=== PATIENT | female | born 1955 | race Native Hawaiian/Other Pacific Islander ===

== ENCOUNTER 2016-06-06 18:14 | Outpatient (CLI) | payer OTHER ==
[~2016-06-06 18:14] MED LIST: ALBUAER5 INH; ALPR1TAB61 PO; BENICAR40 MG PO; FLUTMIS6 INH; FURO20TA67 PO; HYDR-2748 PO; NITR0.4S2 PO; OMEP20CA PO; OMEPRAZOLE20 M1 OR; OMEPRAZOLE20 M1 PO; PRILOSEC20 MG PO; TIZA4TAB5 PO
== END 2016-06-06 18:26 | disposition short-term general hospital (02) ==
LOC: AMB 18:14
DX: R53.1 Weakness (principal); I49.8 Other specified cardiac arrhythmias
CPT/HCPCS: A0425; A0427

== ENCOUNTER 2016-06-06 18:26 | Emergency (ER) | payer OTHER ==
[~2016-06-06] VITALS: Ht 162.6 cm; Wt 68.0 kg
[2016-06-06 21:57] LABS: PLATELET COUNT 311 K/uL (152-353)
[2016-06-06 22:02] LABS: POTASSIUM 3.8 mmol/L (3.6-5.2); SODIUM 136 mmol/L (136-145)
[2016-06-06 23:14] VITALS: BP 175/85; TEMP 98
== END 2016-06-06 23:16 | disposition home or self-care (01) ==
LOC: ED 18:26
DX: N39.0 Urinary tract infection, site not specified (principal)
CPT/HCPCS: 36415; 80053; 80307; 81000; 85027; 93005; 99283; G0479

== ENCOUNTER 2016-07-28 17:50 | Outpatient (CLI) | payer OTHER | END 2016-07-28 18:02 | disposition short-term general hospital (02) | LOC: AMB 17:50 | DX: E86.0 Dehydration (principal); R11.2 Nausea with vomiting, unspecified; R53.1 Weakness | CPT/HCPCS: A0425; A0427 ==

== ENCOUNTER 2016-07-28 18:07 | Emergency (ER) | payer OTHER ==
[~2016-07-28] VITALS: Ht 162.6 cm; Wt 65.8 kg
[2016-07-28 18:44] LABS: PLATELET COUNT 250 K/uL (152-353)
[2016-07-28 18:48] LABS: POTASSIUM 3.6 mmol/L (3.6-5.2); SODIUM 139 mmol/L (136-145)
[2016-07-28 19:36] VITALS: BP 152/95; TEMP 98
== END 2016-07-28 19:38 | disposition home or self-care (01) ==
LOC: ED 18:07
DX: E86.9 Volume depletion, unspecified (principal)
CPT/HCPCS: 80048; 85027; 93005; 96365; 99283

== ENCOUNTER 2016-07-31 09:37 | Outpatient (CLI) | payer OTHER ==
[2016-07-31] MEDS ORDERED: ISOSORB DIN10 MG OR (12:24)
== END 2016-07-31 09:49 | disposition short-term general hospital (02) ==
LOC: AMB 09:37
DX: R53.1 Weakness (principal); R11.2 Nausea with vomiting, unspecified
CPT/HCPCS: A0425; A0429

== ENCOUNTER 2016-08-17 22:07 | Outpatient (CLI) | payer OTHER ==
[~2016-08-17 22:07] MED LIST changes: +ISOSORB DIN10 MG OR
== END 2016-08-17 22:17 | disposition short-term general hospital (02) ==
LOC: AMB 22:07
DX: I10 Essential (primary) hypertension (principal)
CPT/HCPCS: A0425; A0429

== ENCOUNTER 2016-08-17 22:22 | Emergency (ER) | payer OTHER ==
[~2016-08-17] VITALS: Ht 162.6 cm; Wt 68.0 kg
[2016-08-17 23:57] VITALS: BP 165/99; TEMP 98.5
== END 2016-08-18 | disposition home or self-care (01) ==
LOC: ED 22:22
DX: I16.0 Hypertensive urgency (principal)
CPT/HCPCS: 99283

== ENCOUNTER → 2016-09-22 18:24 | Outpatient (CLI) | payer OTHER | END | disposition home or self-care (01) | LOC: AMB 18:24 | DX: I10 Essential (primary) hypertension (principal) ==

== ENCOUNTER 2017-01-06 22:12 | Emergency (ER) | payer OTHER ==
[~2017-01-06] VITALS: Ht 162.6 cm; Wt 68.0 kg
[2017-01-06 23:00] LABS: PLATELET COUNT 242 K/uL (152-353)
[2017-01-06] MEDS ORDERED: MECLIZINE25 MG PO (23:02)
[2017-01-06] MEDS ORDERED: PROM25TA52 PO (23:06)
[2017-01-06] MEDS ORDERED: HYDR10TA51 PO (23:07)
[2017-01-06] MEDS ORDERED: ASPIR-8181 MG PO (23:09)
[2017-01-06] MEDS ORDERED: VALSARTAN160 MG PO (23:09)
[2017-01-06] MEDS ORDERED: DOCU100C10 PO (23:10)
[2017-01-06 23:29] LABS: POTASSIUM 4.1 mmol/L (3.6-5.2)
[2017-01-06 23:52] VITALS: BP 174/102; TEMP 98.6
== END 2017-01-07 00:05 | disposition home or self-care (01) ==
LOC: ED 22:12
DX: R07.89 Other chest pain (principal); R91.1 Solitary pulmonary nodule
CPT/HCPCS: 80053; 82550; 84484; 85027; 99283

== ENCOUNTER 2017-01-15 13:03 | Emergency (ER) | payer OTHER ==
[~2017-01-15] VITALS: Ht 162.6 cm; Wt 68.0 kg
[~2017-01-15 13:03] MED LIST changes: +ASPIR-8181 MG PO; +DOCU100C10 PO; +HYDR10TA51 PO; +MECLIZINE25 MG PO; +PROM25TA52 PO; +VALSARTAN160 MG PO
[2017-01-15 13:10] VITALS: TEMP 98.1
[2017-01-15 15:05] VITALS: BP 148/88
== END 2017-01-15 15:05 | disposition home or self-care (01) ==
LOC: ED 13:03
DX: S00.83XA Contusion of other part of head, initial encounter (principal); S10.83XA Contusion of other specified part of neck, initial encounter; I10 Essential (primary) hypertension; Y04.0XXA Assault by unarmed brawl or fight, initial encounter; Y92.098 Other place in other non-institutional residence as the place of occurrence of the external cause
CPT/HCPCS: 99283

== ENCOUNTER 2017-03-27 01:15 | Outpatient (CLI) | payer OTHER | END 2017-03-27 01:30 | disposition short-term general hospital (02) | LOC: AMB 01:15 | DX: R07.89 Other chest pain (principal) | CPT/HCPCS: A0425; A0427 ==

== ENCOUNTER 2017-03-27 01:34 | Emergency (ER) | payer OTHER ==
[~2017-03-27] VITALS: Ht 162.6 cm; Wt 70.3 kg
[2017-03-27 02:08] LABS: PLATELET COUNT 235 K/uL (152-353)
[2017-03-27 02:14] LABS: POTASSIUM 3.4 mmol/L (3.6-5.2); SODIUM 141 mmol/L (136-145)
[2017-03-27 02:17] LABS: PARTIAL THROMBOPLASTIN TIME 22.5 SECONDS (24.5-33.6)
[2017-03-27 03:24] VITALS: BP 197/94; TEMP 98
== END 2017-03-27 03:26 | disposition home or self-care (01) ==
LOC: ED 01:34
DX: R07.89 Other chest pain (principal)
CPT/HCPCS: 36415; 80053; 80307; 81000; 82550; 82553; 84484; 85027; 85610; 85730; 93005; 99284

== ENCOUNTER 2017-03-30 20:37 | Outpatient (CLI) | payer OTHER | END 2017-03-30 20:51 | disposition short-term general hospital (02) | LOC: AMB 20:37 | DX: R07.89 Other chest pain (principal); I49.8 Other specified cardiac arrhythmias | CPT/HCPCS: A0425; A0427 ==

== ENCOUNTER 2017-03-30 20:56 | Observation (INO) | payer OTHER ==
[~2017-03-30] VITALS: Ht 162.6 cm; Wt 68.1 kg
[2017-03-30 21:16] VITALS: BP 172/92; TEMP 97.9
[2017-03-30 21:47] LABS: PLATELET COUNT 286 K/uL (152-353)
[2017-03-30 22:36] LABS: SODIUM 143 mmol/L (136-145)
[2017-03-31] VITALS (50 sets, daily range): BP systolic 85–199; BP diastolic 56–108; TEMP 98–98.6; Ht 162.6 cm; Wt 68.1 kg
[2017-03-31 14:48] LABS: PARTIAL THROMBOPLASTIN TIME 53.2 SECONDS (24.5-33.6)
--- NOTE | 2017-03-31 17:40 | NUR ---
PT TO ICU BED 2 AT THIS TIME VIA WC. PT ALERT AND ORIENTED AT THIS TIME. NAD NOTED. PT DENIES CP AT THIS TIME. NITRO DRIP INFUSING AT 3ML AT 10MCG/MIN AND HEPARIN DRIP INFUSIN AT 8ML 11.11 UNITS/HR TO R WRIST WITHOUT DIFFICULTY. ASSESSMENT COMPLETE. ORIENTED PT TO ROOM AND CONTROLS. PT VERBALIZED UNDERSTANDING.
--- NOTE | 2017-03-31 22:32 | NUR ---
PT ASSISTED TO WALK TO BATHROOM WITH NO S/S OF DISTRESS OR PAIN NOTED, PT DENIES ANY PROBLEMS AT THIS TIME, BOTH IV SITES INTACT, REP RATE NONLABORED ON ROOM AIR, VITALS BEING MONITORED Q 15 MINUTES, STATES SHE FEELS BETTER SINCE PRN MEDICATION AND SINCE SHE GOT HER NIGHTLY HOME MED OF XANAX. PT NOW BACK IN BED IN POSITION OF COMFORT, WILL MONITOR, RAILS UP X3, CALL LIGHT IN REACH, BED IN LOW POSITION, ENCOURAGED TO CALL NEEDED.
--- NOTE | 2017-03-31 23:56 | NUR ---
PT AWAKE AND ORIENTED WITH NO DISTRESS OR PAIN NOTED, TALKATIVE WITH IDENTIFICATION AND RECORDS COMMANDER, IV SITES INTACT, RESP RATE NONLABORED ON ROOM AIR, ASSISTED TO AND FROM BATHROOM WITH NO PROBLEMS NOTED, PT NOW BACK IN BED. VITALS CONTINUE TO BE MONITORED. HEPARIN DRIP AND NITRO DRIP IN PROGRESS PER ORDERS, WILL MONITOR CLOSELY, RAILS UP, CALL LIGHT IN REACH, BED IN LOW POSITION.
[2017-04-01] VITALS (35 sets, daily range): BP systolic 122–180; BP diastolic 72–113; TEMP 98–98.6
--- NOTE | 2017-04-01 01:49 | NUR ---
03/31/17 AT [place] AND ORIENTED LAYING IN BED TEXTING ON HER PHONE WITH NO S/S OF PAIN OR DISTRESS NOTED, IV INTACT WITH NITRO AND HEPARIN DRIP ONGOING, RESP RATE NORMAL AND NONLABORED, ON ROOM AIR, STATES THAT HER CHEST PAIN HAS DECREASED TO ABOUT A 3 OR 4, TALKATIVE WITH STAFF. WILL MONITOR, RAILS UP, CALL LIGHT IN REACH, BED IN LOW POSITION, ENCOURAGED TO CALL NEEDED.
--- NOTE | 2017-04-01 02:44 | NUR ---
04/01/17 AT 0222PT'S BP WAS HIGH PER VITALS MACHINE. MANUAL BP TAKEN AT THIS TIME BY TICKER INSTALLER. 162/102. AT 0225 ANOTHER NURSE TOOK MANUAL BP AND GOT 178/104. PT STATES SHE IS STARTING TO GET A HEADACHE. AT 0230 BP WAS 140/91, PULSE 86, O2 SAT 98% ON ROOM AIR, RESP RATE NORMAL AND NONLABORED. NO S/S OF DISTRESS NOTED. TICKER INSTALLER WILL CONTINUE TO MONITOR B/P CLOSELY. IV SITES INTACT. PT TALKATIVE WITH TICKER INSTALLER, RAILS UP, BED IN LOW POSITION.
--- NOTE | 2017-04-01 04:58 | NUR ---
03/31/16 AT 1920PT C/O PAIN TO CHEST AND PAIN TO TOP PART OF L ARM THAT SHE STATES DOES NOT RADIATE DOWN HER ARM. RATES PAIN MODERATE. THINKS THAT HER NIGHTLY HOME MED OF XANAX WOULD HELP HER, INFORMED PT THAT SHE COULD HAVE XANAX AROUND 2029 BUT SHE COULD HAVE HER TIZANIDINE 4MG PRN. PT STATES THE PRN MEDICATION WOULD HELP HER. 1925 EKG DONE PER ORDER TO DO ONE FOR ANY CHEST PAIN. 1937 TIZANIDINE 4MG PO PRN GIVEN. PT STATES SHE THINKS SOME OF HER PROBLEM IS HER WORRYING AND PEOPLE TRYING TO CONTACT HER ON HER PHONE. PT ENCOURAGED TO PUT HER PHONE UP MULTIPLE TIMES BUT CONTINUES TO MESS WITH HER PHONE, NO S/S OF PAIN OR DISTRESS NOTED, PT VERY TALKATIVE WITH STAFF, RESP RATE NONLABORED, ON ROOM AIR, SEE VITALS SECTION. WILL MONITOR CLOSELY, RAILS UP, BED IN LOW POSITION.
--- NOTE | 2017-04-01 05:09 | NUR ---
04/01/17 AT 0335PT C/O INTTERMITTEN CHEST PAIN AND PAIN TO "BACK OF HEAD" THAT ARE BOTH "SHOOTING" AND RATES THE PAIN A 10. PT ALSO C/O PAIN TO TOP PART OF HER L ARM AND DESCRIBES THE PAIN "SITTING HER ON ARM" AND RATES PAIN A 10. EDUCATED PT THAT HEADACHE COULD BE CAUSE BY NITRO DRIP. IV SITES INTACT, RESP RATE NONLABORED, ON ROOM AIR. B/P HAS BEEN SLIGHTLY HIGH. PT VERY TALKATIVE AND SEEMS WORRIED ABOUT HER CARE, CONSTANTLY WONDERING AND ASKING ROLLING MACHINE TENDER WHY CERTAIN THINGS HAVE NOT BEEN DONE, WHY THE ER DOCTOR DID NOT ORDER CERTAIN THINGS, AND WHY HAS SHE NOT BEEN SHIPPED TO [facility] DUE TO THEY KNOW HERE WELL THERE SHE STATES. REASSURED PT AND EDUCATED HER ABOUT HER CARE. SPOKE WITH DR. MERCER IN ER AT 0442 ABOUT PT'S PAIN AND B/P. PT TAKES NORCO AT HOME. 0344 NEW ORDER FOR NORCO 10/325MG PO X [address] DOSE NOW[address] T.O. R&V DR. MERCER/JULIO CÉSAR GONZALES RN. PT CONTINUES TO BE ON HER PHONE OFTEN AND TALKATIVE WITH ROLLING MACHINE TENDER. WILL CONTINUE TO MONITOR CLOSELY, RAILS UP, CALL LIGHT IN REACH, BED IN LOW POSITION.
--- NOTE | 2017-04-01 05:17 | NUR ---
04/01/17 AT 0443PT AWAKE LAYING IN BED MESSING WITH HER PHONE, NO S/S OF PAIN OR DISTRESS NOTED, TALKS WITH WEB ART DIRECTOR OFF AND ON, STATES THAT SHE IS NOT FEELING ANY PAIN NOW THAT A FAMILY MEMBER SEND HER SOMETHING ON HER PHONE TO MAKE HER LAUGH, STATES IT MADE HER FORGET ABOUT HER PAIN. NO S/S OF PAIN OR DISTRESS NOTED, WILL MONITOR CLOSELY, IV REMAINS INTACT WITH NITRO DRIP AND HEPARIN DRIP INFUSING PER ORDERS, VITALS CONTINUE TO BE MONITORED.
--- NOTE | 2017-04-01 06:14 | NUR ---
PT CONTINUES TO BE AWAKE LAYING IN BED, TALKATIVE WITH INDUSTRIAL GAS SERVICE HELPER, DENIES ANY PAIN OR PROBLEMS, NO S/S OF PAIN OR DISTRESS NOTED, RESP RATE NONLABORED, ON ROOM AIR, IV SITES INTACT WITH NITRO DRIP AND HEPARIN DRIP INFUSING PER ORDERS. DIASTOLIC B/P CONTINUES TO BE SLIGHTLY HIGH AT TIMES, PT STATES SHE FEELS FINE AND IS NOT HAVING ANY CHEST PAIN. DR IN ER NOTIFIED ABOUT PT'S B/P EARLIER TONIGHT. WILL MONITOR, RAILS UP, BED IN LOW POSITION.
[2017-04-01 08:00] LABS: PLATELET COUNT 214 K/uL (152-353)
[2017-04-01 08:20] LABS: POTASSIUM 3.3 mmol/L (3.6-5.2); SODIUM 137 mmol/L (136-145)
[2017-04-01 08:23] LABS: PARTIAL THROMBOPLASTIN TIME 48.3 SECONDS (24.5-33.6)
--- NOTE | 2017-04-01 09:10 | NUR ---
BELEN GONZALEZ HEATER OPERATOR HELPER AT PATIENT'S BEDSIDE. ORDERS ARE FOR PATIENT'S DISCHARGE AND TO FOLLOW UP WITH OPERATIONS PROFESSIONAL, DR GREGG IN [place]. PATIENT'S HEPARIN DRIP AND NITRO DRIP ARE DISCONTINUED AT THIS TIME.
--- NOTE | 2017-04-01 10:43 | NUR ---
PATIENT AWAITING FOR TRANSPORTATION.
== END 2017-04-01 11:33 | disposition home or self-care (01) ==
LOC: ED 20:56 → ICU 03-31 15:50
PROVIDERS: Emergency Medicine; Specialist
DX: R07.89 Other chest pain (principal); I48.91 Unspecified atrial fibrillation; E11.9 Type 2 diabetes mellitus without complications
CPT/HCPCS: 36415; 80048; 80053; 82550; 82962; 83735; 84484; 85027; 85610; 85730; 93005; 96365; 96366; 96375; 99220; 99285; G0378; J1644; J2405; J3490

== ENCOUNTER 2017-07-18 09:20 | Outpatient (CLI) | payer OTHER | END 2017-07-18 09:33 | disposition short-term general hospital (02) | LOC: AMB 09:20 | DX: R10.84 Generalized abdominal pain (principal); R11.2 Nausea with vomiting, unspecified | CPT/HCPCS: A0425; A0427 ==

== ENCOUNTER 2017-07-18 09:43 | Emergency (ER) | payer OTHER ==
[~2017-07-18] VITALS: Ht 162.6 cm; Wt 70.3 kg
[2017-07-18 09:47] VITALS: TEMP 97.5
[2017-07-18 11:16] LABS: PLATELET COUNT 275 K/uL (152-353)
[2017-07-18 11:25] LABS: POTASSIUM 3.7 mmol/L (3.6-5.2)
[2017-07-18 16:30] VITALS: BP 152/87
== END 2017-07-18 16:48 | disposition home or self-care (01) ==
LOC: ED 09:43
DX: R10.11 Right upper quadrant pain (principal); R11.2 Nausea with vomiting, unspecified; K29.60 Other gastritis without bleeding; R42 Dizziness and giddiness; W01.198A Fall on same level from slipping, tripping and stumbling with subsequent striking against other object, initial encounter; Y92.89 Other specified places as the place of occurrence of the external cause
CPT/HCPCS: 36415; 74022; 80048; 82150; 83690; 85027; 96361; 96374; 99284; J2550

== ENCOUNTER 2017-08-12 12:21 | Emergency (ER) | payer OTHER ==
[~2017-08-12] VITALS: Ht 162.6 cm; Wt 68.0 kg
[2017-08-12 13:41] LABS: PLATELET COUNT 269 K/uL (152-353)
[2017-08-12 13:47] LABS: POTASSIUM 3.6 mmol/L (3.6-5.2)
[2017-08-12 14:56] VITALS: BP 175/90; TEMP 98.9
== END 2017-08-12 15:44 | disposition home or self-care (01) ==
LOC: ED 12:21
PROVIDERS: Family Medicine
DX: F41.8 Other specified anxiety disorders (principal); I10 Essential (primary) hypertension
CPT/HCPCS: 36415; 80053; 85027; 99283

== ENCOUNTER 2017-08-17 14:58 | Inpatient (IN) | payer OTHER ==
[~2017-08-17] VITALS: Ht 162.6 cm; Wt 69.4 kg
[2017-08-17 15:05] VITALS: BP 195/100; TEMP 99.7
[2017-08-17 15:43] LABS: PLATELET COUNT 320 K/uL (152-353)
[2017-08-17 15:51] LABS: POTASSIUM 3.1 mmol/L (3.6-5.2)
[2017-08-17] MEDS ORDERED: OMEPRAZOLE40 MG (23:23)
[2017-08-17] MEDS ORDERED: VERA240T17 PO (23:25)
[2017-08-17] MEDS ORDERED: ONDA4TAB3 PO (23:27)
[2017-08-17 23:44] VITALS: BP 156/79; TEMP 98.9; Ht 162.6 cm; Wt 69.4 kg
[2017-08-18] VITALS: BP 197/84; TEMP 98
[2017-08-18 02:29] LABS: PARTIAL THROMBOPLASTIN TIME > 192.0 SECONDS (24.5-33.6)
[2017-08-18 04:00] VITALS: BP 167/71; TEMP 99
[2017-08-18 06:27] LABS: PLATELET COUNT 269 K/uL (152-353)
[2017-08-18 07:14] LABS: POTASSIUM 3.3 mmol/L (3.6-5.2)
[2017-08-18 08:00] VITALS: BP 142/65; TEMP 98.2
[2017-08-18 12:00] VITALS: BP 168/83; TEMP 98
[2017-08-18 16:00] VITALS: BP 140/95; TEMP 99.1
[2017-08-18 20:23] VITALS: BP 145/67; TEMP 98.6
[2017-08-19 00:16] VITALS: BP 80/60; TEMP 98.7
[2017-08-19 04:00] VITALS: BP 70/40; TEMP 97.6
[2017-08-19 07:56] VITALS: BP 94/56; TEMP 97.8
[2017-08-19 12:00] VITALS: BP 96/61; TEMP 98.1
[2017-08-19 12:16] LABS: PLATELET COUNT 187 K/uL (152-353)
[2017-08-19 13:15] LABS: POTASSIUM 2.4 mmol/L (3.6-5.2)
[2017-08-19 16:00] VITALS: BP 154/82; TEMP 98.4
[2017-08-19 19:45] VITALS: BP 131/62; TEMP 98.1
[2017-08-20 00:28] VITALS: BP 73/49; TEMP 97.7
[2017-08-20 05:03] VITALS: BP 128/81; TEMP 98
[2017-08-20 05:21] LABS: PLATELET COUNT 149 K/uL (152-353)
[2017-08-20 05:44] LABS: POTASSIUM 3.9 mmol/L (3.6-5.2)
[2017-08-20 08:00] VITALS: BP 135/88; TEMP 98
[2017-08-20 12:00] VITALS: BP 128/78; TEMP 97.8
[2017-08-20 16:00] VITALS: BP 122/82; TEMP 97.2
[2017-08-20 20:00] VITALS: BP 145/94; TEMP 98.2
[2017-08-21] VITALS: BP 145/93; TEMP 98.1
[2017-08-21 03:49] VITALS: BP 150/94; TEMP 98.3
[2017-08-21 05:42] LABS: PLATELET COUNT 172 K/uL (152-353)
[2017-08-21 05:55] LABS: POTASSIUM 3.2 mmol/L (3.6-5.2)
[2017-08-21 08:00] VITALS: BP 152/88; TEMP 97.6
[2017-08-21 12:00] VITALS: BP 160/96; TEMP 98.1
[2017-08-21 16:00] VITALS: BP 126/93; TEMP 98
[2017-08-21 20:00] VITALS: BP 151/98; TEMP 98.6
[2017-08-22] VITALS: BP 143/92; TEMP 98.7
[2017-08-22 04:00] VITALS: BP 150/88; TEMP 98.4
[2017-08-22 05:41] LABS: PLATELET COUNT 158 K/uL (152-353)
[2017-08-22 06:10] LABS: POTASSIUM 3.6 mmol/L (3.6-5.2)
[2017-08-22 08:00] VITALS: BP 155/95; TEMP 97.7
[2017-08-22 12:12] VITALS: BP 159/109; TEMP 98.2
== END 2017-08-22 13:20 | disposition home or self-care (01) | DRG 101 ==
LOC: ED 14:58 → MED/SURG 19:16
DX: G40.409 Other generalized epilepsy and epileptic syndromes, not intractable, without status epilepticus (principal); F32.3 Major depressive disorder, single episode, severe with psychotic features; F13.20 Sedative, hypnotic or anxiolytic dependence, uncomplicated; R41.82 Altered mental status, unspecified; I10 Essential (primary) hypertension; F41.1 Generalized anxiety disorder; E83.51 Hypocalcemia; M79.7 Fibromyalgia; K21.9 Gastro-esophageal reflux disease without esophagitis; I25.2 Old myocardial infarction; I25.10 Atherosclerotic heart disease of native coronary artery without angina pectoris; I48.91 Unspecified atrial fibrillation; F43.10 Post-traumatic stress disorder, unspecified; I35.0 Nonrheumatic aortic (valve) stenosis; D72.828 Other elevated white blood cell count
CPT/HCPCS: 36415; 80053; 80307; 81000; 82550; 82948; 83605; 83735; 84484; 85027; 85610; 85730; 86140; 87040; 87070; 93005; 94760; 96360; 96365; 96375; 99284; J2405; J2543; J3480; J3490

== ENCOUNTER 2017-08-23 20:09 | Outpatient (CLI) | payer OTHER ==
[~2017-08-23 20:09] MED LIST changes: +OMEPRAZOLE40 MG; +ONDA4TAB3 PO; +VERA240T17 PO
== END 2017-08-23 20:18 | disposition short-term general hospital (02) ==
LOC: AMB 20:09
DX: R07.89 Other chest pain (principal); R06.02 Shortness of breath
CPT/HCPCS: A0425; A0429

== ENCOUNTER 2017-08-23 20:25 | Observation (INO) | payer OTHER ==
[~2017-08-23] VITALS: Ht 162.6 cm; Wt 72.8 kg
[2017-08-23 20:32] VITALS: BP 84/48; TEMP 96.8
[2017-08-23 21:25] LABS: PLATELET COUNT 152 K/uL (152-353)
[2017-08-23 22:03] LABS: POTASSIUM 3.8 mmol/L (3.6-5.2)
[2017-08-24 02:59] VITALS: BP 126/101; TEMP 96.4; Ht 162.6 cm; Wt 72.8 kg
[2017-08-24 04:00] VITALS: BP 71/24; TEMP 97.7
[2017-08-24 06:49] LABS: POTASSIUM 4.2 mmol/L (3.6-5.2)
[2017-08-24 07:00] LABS: PLATELET COUNT 122 K/uL (152-353)
== END 2017-08-24 09:20 | disposition expired ==
LOC: ED 20:25 → MED/SURG 22:50 → ICU 08-24 06:22
PROC: 0BH17EZ Insertion of Endotracheal Airway into Trachea, Via Natural or Artificial Opening (ICD-10-PCS; principal; 2017-08-24)
DX: R07.89 Other chest pain (principal); R06.02 Shortness of breath; J90 Pleural effusion, not elsewhere classified; D72.828 Other elevated white blood cell count; N18.4 Chronic kidney disease, stage 4 (severe); R74.8 Abnormal levels of other serum enzymes; E86.0 Dehydration
CPT/HCPCS: 31500; 36415; 51702; 80053; 81000; 82140; 82550; 82805; 85027; 92950; 96361; 96365; 96368; 96372; 99220; 99284; G0378; J0456; J0696; J1265; J1885